=== PATIENT | female | born 1940 | race Caucasian/White ===

== ENCOUNTER 2016-12-04 05:08 | Emergency (ER) | payer MEDICARE, OTHER ==
[~2016-12-04] VITALS: Ht 154.9 cm; Wt 50.5 kg
[~2016-12-04 05:08] MED LIST: LEVO.075 PO; PROT40TA PO; SIMV40 PO
[2016-12-04 05:25] VITALS: BP 164/80; PULSE 67; RESP 18; TEMP 97.8; O2SAT 100
[2016-12-04] MEDS ORDERED: LEVO.075 PO (05:36)
[2016-12-04] MEDS ORDERED: TRAZ50TA12 PO (05:36)
[2016-12-04] MEDS ORDERED: ATOR20TA15 PO (05:36)
[2016-12-04] MEDS ORDERED: ATOR40TA16 PO (05:36)
--- NOTE | 2016-12-04 05:38 | PD ---
HPI Chief Complaint: General Weakness Time Seen by Provider: 05:33 Travel History International Travel<30 days: No Contact w/Intl Traveler<30days: No Traveled to known affect area: No History of Present Illness HPI The patient is 76-year-old female that was mowing the lawn in 87 weather Thursday , one week ago. She has felt exhausted, weak since. She denies any cramping and she denies any vertigo. She denies any focal neurologic change, chest pain or shortness of breath. She denies any dysuria, frequency or urgency. She denies any syncopal or near syncopal spells. She denies any fever. She did have diarrhea 5 days ago but none since. This happened in [place] and they subsequently drove here to [place]. She also began her trazodone about 7 days ago. She denies any melanotic or bloody stools but she has been constipated. The patient's mother recently and this is why she is on trazodone, for anxiety. PFSH Past Medical History Anemia: Yes Arthritis: No Heart Rhythm Problems: No Cancer: No High Cholesterol: Yes Chest Pain: No Congestive Heart Failure: No Cerebrovascular Accident: No Diabetes: No Endocrine: Yes GERD: Yes Headaches: Yes Hypertension: Yes (NO MEDS AT THIS TIME) Immune Disorder: No Musculoskeletal: No Neurologic: No Psychiatric: No Respiratory: No Migraines: No Seizures: No Thyroid Disease: Yes (HYPOTHYROID) Ulcer: Yes (BLEEDING ULCERS R/T ASA INTAKE) Menopausal: Yes Past Surgical History Abdominal Surgery: Yes (REPAIR OF BLEEDING ULCER) Cardiac Surgery: No Ear Surgery: No Endocrine Surgery: Yes (PARTIAL THYROID REMOVED) Eye Surgery: Yes (CATARACTS) Hysterectomy: Yes (PARTIAL) Oral Surgery: Yes (DENTAL WORK) Pacemaker: No Thoracic Surgery: No Social History Alcohol Use: Yes (WINE DAILY 2 GLASSES A DAY) Tobacco Use: No Substance Use: No Allergies-Medications (Allergen,Severity, Reaction): Coded Allergies: Aspirin (Verified Adverse Reaction, Unknown, Bleeding, 12/04/16) Reported Meds & Prescriptions Reported Meds & Active Scripts Active Reported Trazodone (Trazodone HCl) 50 Mg Tab 25 Mg PO DAILY Atorvastatin (Atorvastatin Calcium) 40 Mg Tab 40 Mg PO EVERY OTHER DAY Atorvastatin (Atorvastatin Calcium) 20 Mg Tab 20 Mg PO EVERY OTHER DAY Synthroid (Levothyroxine Sodium) 75 Mcg Tab 75 Mcg PO DAILY Review of Systems Except as stated in HPI: all other systems reviewed are Neg Physical Exam Narrative GENERAL: The patient is alert, oriented 3 in no apparent distress. The vital signs show blood pressure 164/80 but are otherwise normal. SKIN: Focused skin assessment warm/dry. HEAD: Atraumatic. Normocephalic. EYES: Pupils equal and round. No scleral icterus. No injection or drainage. ENT: No nasal bleeding or discharge. Mucous membranes pink and moist. NECK: Trachea midline. No JVD. CARDIOVASCULAR: Regular rate and rhythm. No murmur appreciated. RESPIRATORY: No accessory muscle use. Clear to auscultation. Breath sounds equal bilaterally. GASTROINTESTINAL: Abdomen soft, non-tender, nondistended. Hepatic and splenic margins not palpable. MUSCULOSKELETAL: No obvious deformities. No clubbing. No cyanosis. No edema. NEUROLOGICAL: Awake and alert. No obvious cranial nerve deficits. Motor grossly within normal limits. Normal speech. PSYCHIATRIC: Appropriate mood and affect; insight and judgment normal. Data Data Last Documented VS Vital Signs Date Time Temp Pulse Resp B/P Pulse Ox O2 Delivery O2 Flow Rate FiO2 12/04/16 05:42 Room Air 12/04/16 05:25 97.8 67 18 164/80 100 Orders Electrocardiogram (12/04/16 05:44) Complete Blood Count With Diff (12/04/16 05:44) Comprehensive Metabolic Panel (12/04/16 05:44) Troponin I (12/04/16 05:44) Urinalysis - C+S If Indicated (12/04/16 05:44) Ecg Monitoring (12/04/16 05:44) Iv Access Insert/Monitor (12/04/16 05:44) Oximetry (12/04/16 05:44) Sodium Chloride 0.9% Flush (Ns Flush) (12/04/16 05:45) Sodium Chlor 0.9% 1000 Ml Inj (Ns 1000 M (12/04/16 05:44) Labs Laboratory Tests Test 12/04/16 12/04/16 05:25 05:50 White Blood Count 5.1 TH/MM3 Red Blood Count 5.02 MIL/MM3 Hemoglobin 14.4 GM/DL Hematocrit 42.4 % Mean Corpuscular Volume 84.4 FL Mean Corpuscular Hemoglobin 28.6 PG Mean Corpuscular Hemoglobin 33.9 % Concent Red Cell Distribution Width 12.0 % Platelet Count 191 TH/MM3 Mean Platelet Volume 7.7 FL Neutrophils (%) (Auto) 64.4 % Lymphocytes (%) (Auto) 21.5 % Monocytes (%) (Auto) 10.7 % Eosinophils (%) (Auto) 2.9 % Basophils (%) (Auto) 0.5 % Neutrophils # (Auto) 3.4 TH/MM3 Lymphocytes # (Auto) 1.1 TH/MM3 Monocytes # (Auto) 0.5 TH/MM3 Eosinophils # (Auto) 0.1 TH/MM3 Basophils # (Auto) 0.0 TH/MM3 CBC Comment DIFF FINAL Differential Comment Sodium Level 141 MEQ/L Potassium Level 3.8 MEQ/L Chloride Level 106 MEQ/L Carbon Dioxide Level 30.7 MEQ/L Anion Gap 4 MEQ/L Blood Urea Nitrogen 15 MG/DL Creatinine 0.61 MG/DL Estimat Glomerular Filtration 96 ML/MIN Rate Random Glucose 89 MG/DL Calcium Level 8.8 MG/DL Total Bilirubin 0.8 MG/DL Aspartate Amino Transf 26 U/L (AST/SGOT) Alanine Aminotransferase 30 U/L (ALT/SGPT) Alkaline Phosphatase 56 U/L Troponin I LESS THAN 0.02 NG/ML Total Protein 6.7 GM/DL Albumin 3.8 GM/DL Urine Color YELLOW Urine Turbidity CLEAR Urine pH 6.0 Urine Specific Scheller 1.015 Urine Protein NEG mg/dL Urine Glucose (UA) NEG mg/dL Urine Ketones NEG mg/dL Urine Occult Blood NEG Urine Nitrite NEG Urine Bilirubin NEG Urine Leukocyte Esterase TRACE Urine RBC 0-3 /hpf Urine WBC 0-2 /hpf Urine Squamous Epithelial 0-5 /hpf Cells Urine Bacteria NONE /hpf Microscopic Urinalysis Comment CULT NOT INDICATED MDM Medical Decision Making Medical Screen Exam Complete: Yes Emergency Medical Condition: Yes Medical Record Reviewed: Yes Interpretation(s) The EKG is normal with normal sinus rhythm rate of 63. The urine shows trace leukocyte esterase but is otherwise normal and culture is not indicated. The CBC is normal. The complete metabolic profile is normal. The troponin I is less than 0.02. Differential Diagnosis Trazodone side effect, heat exhaustion, GI bleed, anemia, electrolyte disorder Narrative Course The patient likely has a trazodone side effect. This could be heat exhaustion but this is lasted now for 7 days. The patient is not exerted herself lately. Her symptoms continue despite being in a cool environment and hydrating her self fairly well. The blood work shows there is no electrolyte disorder, no GI bleed, no anemia and no hypoglycemia. Diagnosis Primary Impression: Medication side effect Additional Instructions: As we discussed, discontinue the trazodone as this may be causing the symptoms. Continue to stay well-hydrated. Follow-up with your primary care physician next week. Med/Other Pt SpecificInfo: No Change to Meds Disposition: 01 DISCHARGE HOME Condition: Stable Hilario Freeman MD Dec 04, 2016 05:38
[2016-12-04] MEDS ORDERED: SODIUM CHLOR 0.9% 1000 ML INJ 1,000 ML IV ONE (05:44)
[2016-12-04] MEDS ORDERED: SODIUM CHLORIDE 0.9% FLUSH 10 ML FLUSH IVF PRN (05:45)
[2016-12-04 06:01] LABS: AUTOMATED NEUTROPHIL # 3.4 TH/MM3 (1.8-7.7); BASOPHIL % 0.5 % (0.0-2.0); EOSINOPHIL # 0.1 TH/MM3 (0-0.4); EOSINOPHIL % 2.9 % (0.0-4.0); HEMATOCRIT 42.4 % (35.0-46.0); HEMO FLAGS DIFF FINAL; LYMPH % 21.5 % (9.0-44.0); LYMPHOCYTE # 1.1 TH/MM3 (1.0-4.8); MEAN CELL VOLUME 84.4 FL (80.0-100.0); MEAN CORPUSCULAR HEMOGLOBIN 28.6 PG (27.0-34.0); MEAN CORPUSCULAR HGB CONC 33.9 % (32.0-36.0); MONO % 10.7 % (0.0-8.0); NEUT % 64.4 % (16.0-70.0); PLATELET COUNT 191 TH/MM3 (150-450); RED BLOOD COUNT 5.02 MIL/MM3 (4.00-5.30); WHITE BLOOD COUNT 5.1 TH/MM3 (4.0-11.0)
[2016-12-04 06:03] LABS: BLOOD, URINE NEG (NEG); GLUCOSE,URINE NEG (NEG); KETONE, URINE NEG (NEG); NITRITE,URINE NEG (NEG)
[2016-12-04 06:05] LABS: URINE COLOR YELLOW (YELLW/STRAW)
[2016-12-04 06:07] LABS: RBC, URINE 0-3 /hpf (0-3); SQUAMOUS EPITHELIAL CELL URINE 0-5 /hpf (0-5); WBC, URINE 0-2 /hpf (0-5)
[2016-12-04 06:08] LABS: CHLORIDE 106 MEQ/L (98-107); POTASSIUM 3.8 MEQ/L (3.5-5.1); SODIUM (NA) 141 MEQ/L (136-145)
[2016-12-04 06:08] LABS: COMMENT (UR) CULT NOT INDICATED; CULTURE IF INDICATED CULT NOT INDICATED
[2016-12-04 06:11] LABS: ANION GAP 4 MEQ/L (5-15); BICARBONATE 30.7 MEQ/L (21.0-32.0); BLOOD UREA NITROGEN 15 MG/DL (7-18)
[2016-12-04 06:14] LABS: ALT (GPT) 30 U/L (10-53); AST (GOT) 26 U/L (15-37); GLOMERULAR FILTRATION RATE 96 ML/MIN (>89)
[2016-12-04 06:16] LABS: TOTAL BILIRUBIN ADULT 0.8 MG/DL (0.2-1.0)
[2016-12-04 06:17] LABS: ALKALINE PHOSPHATASE 56 U/L (45-117)
[2016-12-04 06:55] VITALS: BP 171/61; PULSE 68; O2SAT 98
--- NOTE | 2016-12-04 11:47 | EKG ---
Date Performed: 12/04/2016 Time Performed: 05:17:22 PTAGE: 76 years EKG: Sinus rhythm . Normal ECG PREVIOUS TRACING : 08/24/2012 21.44 Compared to prior tracing no significant change DOCTOR: Sincere Kaba Interpretating Date/Time 12/04/2016 11:45:32
== END 2016-12-04 07:00 | disposition home or self-care (01) ==
LOC: PHED 05:08
DX: R53.1 Weakness (principal); E03.9 Hypothyroidism, unspecified; I10 Essential (primary) hypertension
CPT/HCPCS: 80053; 81001; 84484; 85025; 93005; 96360; 99284; J7030